=== PATIENT | female | born 1995 | race Hispanic/Latino ===

== ENCOUNTER → 2024-08-02 13:58 | Outpatient (CLI) | payer OTHER, SELFPAY ==
[2024-08-02 15:43] LABS: Urine N gonorrhoeae NOT DETECTED
[2024-08-02 15:44] LABS: Urine Chlamydia NOT DETECTED
== END ==
PROVIDERS: PCP Nurse Practitioner Family; Visit Provider Physician Assistant Medical
DX: N76.0 Acute vaginitis (principal)
CPT/HCPCS: 87210; 87491; 87591